=== PATIENT | female | born 1985 | race Caucasian/White ===

== ENCOUNTER 2017-01-26 20:43 | Emergency (ER) | payer OTHER ==
[~2017-01-26] VITALS: Ht 157.5 cm; Wt 97.5 kg
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
[~2017-01-26 20:43] MED LIST: ALBUTEROL17 GM INH; AMBIEN PO; ATIVAN PO; BACTROBAN15 GM TOP; CELEXA PO; COLACE PO; ELMIRON100 MG PO; KEPPRA750 MG PO; LOESTRIN FE 1.51 TAB PO; MACRODANTIN PO; MIRALAX255 GM PO; PERCOCET10 PO; PROTONIX PO; RELPAX40 MG PO; SEROQUEL PO; SINGULAIR PO; SOMA PO; VALTREX PO; VISTARIL PO; ZANAFLEX PO; ZYRTEC PO
== END 2017-01-26 22:45 | disposition home or self-care (01) ==
LOC: SED 20:43
DX: S30.0XXA Contusion of lower back and pelvis, initial encounter (principal); F41.9 Anxiety disorder, unspecified; Z88.1 Allergy status to other antibiotic agents; Z88.2 Allergy status to sulfonamides; Z88.6 Allergy status to analgesic agent; X58.XXXA Exposure to other specified factors, initial encounter
CPT/HCPCS: 72100; 72220; 96372; 99283; J1885